=== PATIENT | female | born 1975 | race Caucasian/White ===

== ENCOUNTER 2017-07-28 22:12 | Emergency (ER) | payer SELFPAY ==
[~2017-07-28] VITALS: Ht 162.6 cm; Wt 56.4 kg
[2017-07-28 23:01] VITALS: Ht 162.6 cm; Wt 56.4 kg
[2017-07-29] MEDS ORDERED: ALPRAZOLAM 1 MG TAB PO ONE (03:00)
[2017-07-29] MEDS ORDERED: ALPR0.25 PO (03:05)
--- NOTE | 2017-07-29 03:17 | ERD ---
ER Documentation Chief Complaint Chief Complaint anxiety, no sleep x3 days. denies smoke, ETOH, drug HPI 41-year-old female presents to emergency department for anxiety episodes for the last 3 days, patient is complaining of insomnia and an inability to sleep. Patient has had the symptoms before, as is her of anxiety, was given prescription for Xanax which she did not fill the prescriptions. Patient denies any chest pain or palpitations. Patient denies homicidal or suicidal ideations. She is not currently on medications for anxiety but used to take Xanax ROS All systems reviewed and are negative except as per history of present illness. Medications Home Meds Active Scripts Alprazolam* (Xanax*) 0.25 Mg Tablet, 0.25 MG PO Q8H Y for ANXIETY, #10 TAB Prov:DESMOND JUAREZ NP 07/29/17 Allergies Allergies: Coded Allergies: No Known Allergy (Unverified , 07/28/17) PMhx/Soc Medical and Surgical Hx: pt denies Surgical Hx History of Surgery: No Anesthesia Reaction: No Hx Neurological Disorder: No Hx Respiratory Disorders: No Hx Cardiac Disorders: No Hx Psychiatric Problems: No Hx Miscellaneous Medical Probl: Yes (anxiety) Hx Alcohol Use: No Hx Substance Use: No Hx Tobacco Use: No Smoking Status: Never smoker FmHx Family History: No coronary disease, No diabetes, No other Physical Exam Vitals Vital Signs Date Time Temp Pulse Resp B/P Pulse Ox O2 Delivery O2 Flow Rate FiO2 07/29/17 03:35 98.4 70 15 119/82 100 Room Air 07/29/17 03:22 97.8 86 18 137/60 100 Room Air 07/28/17 23:01 98.0 98 18 109/61 100 Physical Exam GENERAL: The patient is well developed and appropriate for usual state of health, in no apparent distress. CHEST: Clear to auscultation bilaterally. There are no rales, wheezes or rhonchi. HEART: Regular rate and rhythm. No murmurs, clicks, rubs or gallops. No S3 or S4. ABDOMEN: Soft, nontender and nondistended. Good bowel sounds. No rebound or guarding. No gross peritonitis. No gross organomegaly or masses. No Chopra sign or McBurney point tenderness. BACK: No midline or flank tenderness. EXTREMITIES: Equal pulses bilaterally. There is no peripheral clubbing, cyanosis or edema. No focal swelling or erythema. Full range of motion. Grossly neurovascularly intact. NEURO: Alert and oriented. Cranial nerves 2-12 intact. Motor strength in all 4 extremities with 5/5 strength. Sensation grossly intact. Normal speech and gait. SKIN: There is no apparent rash or petechia. The skin is warm and dry. HEMATOLOGIC AND LYMPHATIC: There is no evidence of excessive bruising or lymphedema. No gross cervical, axillary, or inguinal lymphadenopathy. Psychiatric: Patient is restless, cooperative, does not verbalize homicidal or suicidal ideations patient is accompanied with family member. Results 24 hrs Current Medications Medications (Trade) Dose Ordered Sig/Mitesh Route PRN Reason Start Time Stop Time Status Last Admin Dose Admin Alprazolam (Xanax) 1 mg ONCE ONCE PO 07/29/17 03:00 07/29/17 03:01 DC 07/29/17 02:57 Xanax was given here in emergency department, verbalized much better afterwards. Patient went to the bathroom, patient family states that patient seems to be hallucinating and started to be more combative, patient is verbalizing that she wants to sleep. Patient was laid down on the gurney in bed, patient was allowed to sleep for 2 hours, after that, and she woke up, patient is alert awake oriented, no hallucinations, able to recognize family, ambulatory with steady gait. I discussed this case with my attending physician also evaluated the patient, patient is okay to be discharged per initial instructions. Procedures/MDM Decision making: Patient symptoms was likely is consistent with anxiety. No symptoms of psychiatric emergencies, no symptoms of homicidal or suicidal ideations. Patient is with a family member at this time which takes care of her. Patient was given Xanax here in the emergency department and verbalized much better afterwards. Patient was advised to follow with care specialist, patient was advised to follow-up with primary care doctor in 2-3 days for reevaluation of symptoms. Patient was advised to return to emergency department for any worsening symptoms. Disposition: Home. Stable Departure Diagnosis: Primary Impression: Anxiety Condition: Stable Patient Instructions: Anxiety Reaction DESMOND JUAREZ NP Jul 29, 2017 03:17
[2017-07-29 03:35] VITALS: BP 119/82; PULSE 70; RESP 15; TEMP 98.4
== END 2017-07-29 05:15 | disposition home or self-care (01) ==
LOC: FTE 22:12
DX: F41.9 Anxiety disorder, unspecified (principal)
CPT/HCPCS: 99283